=== PATIENT | female | born 1965 | race Caucasian/White ===

== ENCOUNTER 2020-05-21 23:46 | Emergency (ER) | payer BC, SELFPAY ==
--- NOTE | ~2020-05-21 | CT_ITS ---
EXAMINATION: CT abdomen pelvis w con EXAM DATE: 05/22/2020 01:46 INDICATION: Abdominal pain. TECHNIQUE: Spiral CT of the abdomen and pelvis was performed following intravenous injection of 100 m L Omnipaque 350. Axial, coronal and sagittal images were reviewed. The dose-length product (DLP) fo r this examination was 322.00 mGy-cm. The exposure was tailored according to patient size (auto mA e xposure control), and iterative reconstruction (ASIR) was used as additional dose reduction technique . There is no prior study for comparison. FINDINGS: The liver, spleen, adrenal glands and pancreas are unremarkable. There are cholecystectomy clips. There is a 1 cm stone in the left renal pelvis which is nonobstructing. Other similar sized left calyceal stones. There is 3 mm right superior calyceal stone. No hydronephrosis. Inflammation mack rrounding the urothelium and right kidney. No ureteral stones identified. The uterus is not identifi ed and has likely been surgically resected. There is 2.5 mm stone in the bladder. There is no retro peritoneal or pelvic lymphadenopathy. Small umbilical fat-containing hernia. Probable identification of a normal appendix. No pericecal inflammation. There is small sliding gas troesophageal hiatal hernia. The gastric antrum appears to have some wall thickening which could be p hasic. Can't exclude gastritis. There is expected amount of colonic stool. No free intraperitoneal gas. The heart is normal in size. There are no pericardial or pleural effusions. The lung bases a re unremarkable. The bones are unremarkable. IMPRESSION: 1. Bilateral urothelial enhancement, inflammation and some fat stranding surrounding right kidney. Could be upper urinary tract infections but no evidence of pyelonephritis. Patient might have also re cently passed a right ureteral stone, there is 2.5 mm stone in the bladder. 2. Bilateral nephrolithiasis. 3. Gastric antral wall prominence, could be phasic but can't exclude gastritis. Reviewed, dictated and finalized at location A. IMPRESSION: 1. Bilateral urothelial enhancement, inflammation and some fat stranding surro unding right kidney. Could be upper urinary tract infections but no evidence o f pyelonephritis. Patient might have also recently passed a right ureteral ston e, there is 2.5 mm stone in the bladder. 2. Bilateral nephrolithiasis. 3. Gastric antral wall prominence, could be phasic but can't exclude gastritis .
[2020-05-22] VITALS: BP 132/80; PULSE 70; RESP 16; TEMP 36.7; O2SAT 100
[2020-05-22 00:44] LABS: Basophils Percent Auto 0.3 % (0.2-1.2); Eosinophils Percent Auto 0.4 % (0-4.4); Hematocrit 39.3 % (37.0-47.0); Hemoglobin 13.2 g/dL (12.0-15.0); Immature Granulocyte Absolute 0.03 K/mm3 (0.00-0.031); Immature Granulocyte Percent A 0.4 % (0-0.5); Lymphocytes Absolute Auto 0.93 K/mm3 (0.9-3.2); Lymphocytes Percent Auto 12.1 % (18.3-44.2); Mean Corpuscular HGB Conc 33.6 g/dl (32-36); Mean Corpuscular Hemoglobin 29.1 pg (26-34); Mean Corpuscular Volume 86.8 fl (80-100); Mean Platelet Volume 12.5 fl (7.4-10.4); Monocytes Absolute Auto 0.3 K/mm3 (0.1-0.6); Neutrophils Absolute Auto 6.3 K/mm3 (1.3-6.7); Neutrophils Percent Auto 82.8 % (45.5-73.1); Platelet Count Result 106 k/mm3 (150-375); Red Blood Count 4.53 M/mm3 (4.2-5.4); Red Cell Distribution Width 12.9 % (11.5-14.5); White Blood Count 7.7 K/mm3 (4.5-10.0)
[2020-05-22] MEDS: MORPHINE SULFATE (*CRX) 4 MG/ML INJ IV PUSH (00:57)
[2020-05-22] MEDS: SODIUM CHLORIDE 0.9% IV 1,000 ML 999 ML IV CONT (00:57)
[2020-05-22] MEDS: ONDANSETRON INJ 4 MG/2 ML VIAL IV PUSH (00:58)
[2020-05-22 01:21] LABS: Alanine Aminotransferase 37 U/L (4-35); Albumin Level 4.3 g/dL (3.5-5.1); Alkaline Phosphatase 111 U/L (38-126); Anion Gap 5 mmol/L (8-16); Aspartate Amino Transferase 48 U/L (14-36); Bilirubin,Total 0.3 mg/dL (0.2-1.3); Blood Urea Nitrogen 19 mg/dL (7-17); Carbon Dioxide 32 mmol/L (22-30); Chloride 100 mmol/L (98-107); Estimated CRCL calculation 51 ml/min; Estimated Glomerular Filt Rate 58; Glucose 130 mg/dL (65-105); Lipase 50 U/L (23-300); Potassium 4.1 mmol/L (3.4-5.0); Sodium 137 mmol/L (137-145)
--- NOTE | 2020-05-22 01:23 | ED.ABDPAIN ---
HPI - Abdominal Pain General Chief Complaint: Abdominal Pain Stated Complaint: right flank pain Time Seen by Provider: 05/21/20 23:48 Source: RN notes reviewed History of Present Illness HPI narrative: Patient presents to emergency department from home for right-sided abdominal pain. Patient states that this morning she felt like she had a UTI with some frequent urination she states that this evening she developed pain in her right flank that radiates around to the right side of her abdomen pain is described as sharp and stabbing and comes in waves associated with nausea and vomiting. Patient does states she has a previous history of a kidney stone. She denies any fevers or chills chest pain shortness of breath diarrhea or any other symptoms states she took ibuprofen at home with minimal relief Related Data Allergies Allergy/AdvReac Type Severity Reaction Status Date / Time No Known Allergies Allergy Mild Verified 07/15/19 15:22 Review of Systems Review of Systems: Narrative: Gen.: Denies fevers or chills ENT: Denies congestion Respiratory: Denies shortness of breath or cough CV: Denies chest pain or palpitations GI: See HPI reports urinary frequency Musculoskeletal: Denies back pain or muscle pain Neuro: Denies numbness, tingling, weakness or focal weakness Skin: Denies rash Except as documented, all other systems reviewed and negative [facility] Past Medical History Medical History (Updated 05/22/20 @ 03:32 by Elieser Gallego DO) Kidney stone Family History Family History Father Hypertension Grandparent Cerebrovascular accident Diabetes mellitus Social History Social History Smoking status: Never smoker Alcohol intake: never Gender identity (if verbalized by the patient): Female Exam Narrative: Exam Narrative: APPEARANCE: No acute distress, nontoxic, resting in bed HEENT: Normocephalic, atraumatic, OMM RESPIRATORY: No respiratory distress, clear to auscultation bilaterally with no rhonchi wheezing or rales CARDIOVASCULAR: RRR s murmur ABDOMINAL: Soft nondistended tender palpation right upper quadrant right lower quadrant no tenderness left upper quadrant left lower quadrant, right flank tenderness MUSCULOSKELETAl: Moves all extremities. No clubbing, cyanosis or edema. NEURO: Awake and alert. Following commands, speech normal, no focal deficits SKIN:: Warm, dry. Normal Color PSYCHIATRIC: Normal affect/mood Course Vital Signs Vital signs: Vital Signs Temperature 98.1 F 05/22/20 00:00 Pulse Rate 70 05/22/20 00:00 Respiratory Rate 16 05/22/20 00:00 Blood Pressure 132/80 05/22/20 00:00 Pulse Oximetry 100 05/22/20 00:00 Temperature 98.1 F 05/22/20 00:00 Pulse Rate 66 05/22/20 02:21 Respiratory Rate 14 05/22/20 02:21 Blood Pressure 121/64 05/22/20 02:21 Pulse Oximetry 99 05/22/20 02:21 MDM - Abdominal Pain MDM Narrative Medical decision making narrative: Patient presents for right flank pain this evening had had some pressure and frequent urination this morning. UA does show blood in the urine CT scan shows some stranding around the right ureter and some mild hydronephrosis I do suspect a recently passed kidney stone I will start the patient on a short course of antibiotics she is feeling better this time with follow-up as an outpatient Lab Data Result diagrams: 05/22/20 00:20 05/22/20 00:20 Labs: Lab Results 05/22/20 05/22/20 05/22/20 Range/Units 00:20 00:20 01:01 WBC 7.7 (4.5-10.0) K/mm3 RBC 4.53 (4.2-5.4) M/mm3 Hgb 13.2 (12.0-15.0) g/dL Hct 39.3 (37.0-47.0) % MCV 86.8 (80-100) fl MCH 29.1 (26-34) pg MCHC 33.6 (32-36) g/dl RDW 12.9 (11.5-14.5) % Plt Count 106 L (150-375) k/mm3 MPV 12.5 H (7.4-10.4) fl Immature Gran % (Auto) 0.4 (0-0.5) % Neut % (Auto) 82.8 H
[2020-05-22 01:47] LABS: Add Urine Microscopic? YES; Appearance Urine Cloudy (Clear); Bilirubin Urine Negative (Negative); Blood Urine 3+ (Negative); Color Urine Yellow (Yellow); Glucose Urine UA Negative (Negative); Ketones Urine Negative (Negative); Leukocyte Esterase Ur 1+ LEU/UL (Negative); Mucus Urine Rare /lpf; Nitrate Urine Negative (Negative); Protein Urine 2+ mg/dL (Negative); RBC Urine >75 /hpf (0-2); Specific Grav Ur 1.019 (1.001-1.035); Squamous Epithelial Cell Urine Rare /hpf (Few); Urobilinogen Urine Negative mg/dL (<2.0); WBC Urine 21-30 /hpf
[2020-05-22 02:21] VITALS: BP 121/64; PULSE 66; RESP 14; O2SAT 99
[2020-05-22 03:42] VITALS: BP 123/72; PULSE 68; RESP 16; O2SAT 100
== END 2020-05-22 03:40 | disposition home or self-care (01) ==
PROVIDERS: Emergency Provider Emergency Medicine; PCP Family Medicine
DX: N20.0 Calculus of kidney (principal); N39.0 Urinary tract infection, site not specified; Z87.442 Personal history of urinary calculi
CPT/HCPCS: 36415; 74177; 80053; 81001; 83690; 85025; 87086; 96361; 96365; 96375; 99284; J0696; J2270; J2405; J7030; Q9967

== ENCOUNTER 2021-02-21 12:54 | Outpatient (CLI) | payer BC, SELFPAY ==
--- NOTE | ~2021-02-21 | CT_ITS ---
EXAMINATION: CT abdomen pelvis wo/w con DATE: 02/21/2021 13:39 INDICATION: Personal history of urinary calculi. TECHNIQUE: Computed tomography (CT) of the abdomen and pelvis was performed without and with intraven ous contrast using a total of 130 mL Omnipaque-350 intravenous contrast with a double-bolus technique for simultaneous opacification of the renal parenchyma and renal collecting system. Automated exposu re control and iterative reconstruction technique were employed. The dose-length product was 1280.86 mGy-cm. COMPARISON: CT abdomen and pelvis 05/22/2020 FINDINGS: The visualized portions of the lung bases demonstrate mild atelectasis. No pleural effusion. The hear t size is normal. No pericardial effusion. The liver is normal. There is a 7 mm hyperenhancing mass i n the spleen, likely a benign mass such as a hemangioma. The pancreas and adrenal glands are normal. There are 3 mm 2 mm stones in right kidney. There are cysts in the kidneys measuring up to 11 mm on t he left. The right ureter is well opacified and is normal. There are 4 stones in the left kidney and left renal pelvis measuring up to 12 mm. There is urothelial thickening in left renal pelvis and some of the left infundibula, consistent with inflammation. The left ureter is well opacified. The bladde r is normal. There are no dilated loops of bowel. The appendix is not visualized. There are no pathol ogically enlarged lymph nodes. There is no free intraperitoneal fluid. There is a benign bone island in right ilium. There is mild thoracolumbar spondylosis. IMPRESSION: 1. Stones in the kidneys and left renal pelvis. 2. Urothelial thickening again seen in the left renal pelvis and some of the left infundibula, consis tent with inflammation versus infection. Reviewed, dictated and finalized at location B. RY MACHINE OPERATOR IMPRESSION: 1. Stones in the kidneys and left renal pelvis. 2. Urothelial thickening again seen in the left renal pelvis and some of the le ft infundibula, consistent with inflammation versus infection.
--- NOTE | ~2021-02-21 | US_ITS ---
EXAMINATION: US soft tissue head and neck, US soft tissue chest DATE: 02/21/2021 13:48 INDICATION: Localized swelling, mass and lump of the trunk at the right supraclavicular region and la teral right chest TECHNIQUE: Multiple grayscale and Doppler ultrasound images of the region of concern at the neck and right supraclavicular chest were obtained. COMPARISON: None FINDINGS: 5.0 x 1.7 x 1.0 cm subcutaneous mass in the right supraclavicular region which is isoechoic and with similar echotexture to the surrounding subcutaneous fat most likely to represent a lipoma. No other a bnormal masses or fluid collections identified at the right supraclavicular region. There is a simila r appearing 4.2 x 2.6 x 0.9 cm subcutaneous mass along the lateral right chest wall at the site of th e palpable abnormality also most suspicious for a lipoma. IMPRESSION: 1. 5.0 x 1.7 x 1.0 cm right supraclavicular subcutaneous mass and 4.2 x 2.6 x 0.9 cm subtle airspace opacity lateral right chest wall. Both lesions are nonspecific but have appearance most consistent wi th an statistically most likely to represent lipomas. Reviewed, dictated and finalized at location A. ERT GROWER IMPRESSION: 1. 5.0 x 1.7 x 1.0 cm right supraclavicular subcutaneous mass and 4.2 x 2.6 x 0 .9 cm subtle airspace opacity lateral right chest wall. Both lesions are nonspe cific but have appearance most consistent with an statistically most likely to represent lipomas.
[2021-02-21 13:14] LABS: Estimated Glomerular Filt Rate > 60
== END 2021-02-21 12:55 ==
PROVIDERS: PCP Family Medicine; Visit Provider Physician Assistant Medical
DX: Z87.442 Personal history of urinary calculi (principal); N20.0 Calculus of kidney; R93.49 Abnormal radiologic findings on diagnostic imaging of other urinary organs
CPT/HCPCS: 74178; 76536; 76604; Q9967

== ENCOUNTER 2021-03-22 14:14 | Outpatient (CLI) | payer BC, SELFPAY ==
--- NOTE | ~2021-03-22 | XR_ITS ---
EXAMINATION: XR abdomen/kub 1V DATE: 03/22/2021 14:32 INDICATION: Bilateral kidney stones. TECHNIQUE: A supine view of the abdomen on 2 radiographs was obtained. COMPARISON: CT abdomen and pelvis 02/21/2021 FINDINGS: There are no dilated loops of bowel. There phleboliths in the pelvis. Surgical clips in the right upper quadrant are likely from cholecystectomy. There are 3 stones or clusters of stones in le ft kidney measuring up to 18 mm. IMPRESSION: 1. Left kidney stones. Reviewed, dictated and finalized at location A. WAITER/WAITRESS IMPRESSION: 1. Left kidney stones.
== END 2021-03-22 14:15 | disposition home or self-care (01) ==
LOC: ANHIMG 14:20
PROVIDERS: PCP Family Medicine; Visit Provider Nurse Practitioner Family
DX: N20.0 Calculus of kidney (principal)
CPT/HCPCS: 74018

== ENCOUNTER 2021-03-25 03:29 | Day surgery (SDC) | payer BC, SELFPAY ==
[2021-03-23 08:18] VITALS: BMI 25.0
--- NOTE | 2021-03-23 08:31 | PC.NURSE ---
Report to the Outpatient Waiting Room, entrance under the green pavilion located off [facility], at time 0830 on date 03/25/21. OR Time: 1030. - You will be asked a series of questions to screen for COVID 19 for your protection. - A mask is required within the hospital. - No visitors are allowed at this time. Preoperative COVID Testing Requirements: No COVID Test needed if: (proof is required; if not received patient will have Rapid Test prior to entry) - Patient has received COVID Vaccine at least 14 days prior to procedure date or - Patient has positive COVID test result within last 90 days of surgery date. COVID Test needed if above criteria is not met Patients may have clear liquids (water, carbonated beverages, clear teas, apple juice) until 3 hours prior to surgery with a maximum of 20 ounces. - No food from midnight until time of surgery Take the following medications with a SIP of water the morning of surgery: PAIN PILL (IF NEEDED) Medications to discontinue per physician: N/A Date to take last dose: N/A Please no make-up, nail moroccan, hairspray, perfume, deodorant, or body powder the day of surgery. No jewelry (including any body piercings) or valuables the day of surgery, leave them at home. Please take a shower or bath the night before, or the morning of, surgery with an antibacterial soap. Wear comfortable, loose fitting clothing. - Jewelry must be removed prior to entering the operating room. Rings and piercings that are not removed may be cut off. - The hospital will not accept responsibility for valuables. - Please leave all valuables, including medications, at home the day of surgery. If you are going home after surgery, a licensed driver helper must drive you home. - NO public transportation without another adult. - We recommend that an adult stay with you for 24 hours following discharge. - We also recommend that you do not drive, make important decision, drink alcoholic beverages, or take any drugs that were not prescribed by your health care provider for at least 24 hours after your discharge time. For Pediatric surgeries, we recommend two adults accompany the child home (only one inside the building at this time). Follow any additional instructions given to you from your surgeon. Telephone instructions given to JOSE RAFAEL HARDY and asked if any additional questions and then verbalized understanding. Patient advised to call surgeon office or pre surgery nurse liaison [phone] if any additional questions.
[2021-03-25] VITALS (7 sets, daily range): BP systolic 93–127; BP diastolic 55–74; PULSE 57–72; RESP 11–20; TEMP 36.1–36.5; O2SAT 98–100
--- NOTE | ~2021-03-25 | XR_ITS ---
EXAMINATION: XR abdomen/kub 1V EXAM DATE: 03/25/2021 08:38 INDICATION: ESWL TECHNIQUE: Frontal projection(s) of the abdomen for interpretation. Comparison is made to prior exami nation from 03/22/2021. FINDINGS: Clusters of left calyceal stones reidentified, indicated. Moderate amount of colonic stool and gas. Cholecystectomy clips. No small bowel obstruction. Calcifications in the pelvis are believe d to be phleboliths. There are mild bony degenerative changes. IMPRESSION: Left nephrolithiasis. Reviewed, dictated and finalized at location B. DYEING MACHINE OPERATOR IMPRESSION: Left nephrolithiasis.
--- NOTE | 2021-03-25 06:34 | WPDHPUPDATE1 ---
History and Physical Update Update Date/Time: 03/25/21 06:34 History and Physical has been reviewed, including an updated exam of the patient. There are NO changes in the patient's condition. Risks, benefits, and alternatives have been discussed and questions answered. Patient agrees to proceed with procedure.
--- NOTE | 2021-03-25 07:42 | ECG_ITS ---
Measurements Intervals [place] Rate: 60 P: 38 MT: 130 QRS: 12 QRSD: 80 T: 40 QT: 410 QTc: 410 Interpretive Statements SINUS RHYTHM MINIMAL Q WAVES- HIGH LAT/LAT LEADS BORDERLINE ECG Electronically Signed On 03-25-2021 9:29:57 RETINA SUBSPECIALIST by Juno Hameed D.O.
--- NOTE | 2021-03-25 09:12 | WPDANESEPPF ---
Anes - Initial Pre Proc Eval Procedure: Operation Date: 03/25/21 10:30 Proposed Procedures p Left Extracorporeal Shock Wave Lithotripsy, - Tu Reese MD s Possible Cystoscopy with Possible Left Stent Placement - Tu Reese MD Date/Time: 03/25/21 09:12 Surgeon: Tu Reese MD Pre Op Diagnosis: bilateral renal stones Patient Data Age: 55 Gender: F Height: 1.65 m Weight: 68.04 kg Allergies Allergy/AdvReac Type Severity Reaction Status Date / Time No Known Allergies Allergy Mild Verified 03/23/21 08:17 Home Medications Medication Instructions Recorded Confirmed Type benazepril 10 mg tablet 10 mg PO DAILY #90 tablet 02/18/21 03/23/21 Rx tamsulosin 0.4 mg capsule 0.4 mg PO QHS #30 cap 02/28/21 03/23/21 Rx hydrocodone-acetaminophen 1 tablet PO Q6H PRN 03/23/21 03/23/21 History Patient hx anesthesia problems: none Family hx anesthesia problems: none Results Review: All pre-operative results and documents have been reviewed as part of the pre-operative evaluation. 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 Dietary counseling and surveillance (09/19/17) Encounter for screening for lipoid disorders Essential hypertension Herpes zoster without complication Kidney stone Post herpetic neuralgia Right upper quadrant pain Routine physical examination Screening for colon cancer Visit for suture removal Surgical History Surgical History (Updated 03/24/21 @ 13:43 by Casa Carrillo DO) History of hysterectomy Family History Family History Father Hypertension CHF (congestive heart failure) COPD (chronic obstructive pulmonary disease) Grandparent Cerebrovascular accident Diabetes mellitus Mother Thyroid activity decreased Sibling No problems noted. Social History Social History Years smoked: 2 Smoking status: Former smoker Tobacco type: cigarettes Second hand tobacco smoke exposure: Yes Smoking end date: 02/12/89 Alcohol intake: never Substance use: never Substance use type: does not use Living arrangements: with family Additional occupation/education comments: accounts payable Gender identity (if verbalized by the patient): Female Spiritual care concerns: No Anes - Eval Final PreProcedure Day of Procedure 03/25/21 09:12 Patient weight: normal Heart: regular rate and rhythm Lungs: clear to auscultation and normal air movement Airway: Mallampati scale class II Neurological: alert and oriented Last oral intake: >/= 8 hours ASA classification: II Emergent: no Anesthetic plan: proceed Anesthesia type and monitoring: general LMA and standard monitoring Results Review: All pre-operative results and documents have been reviewed as part of the pre-operative evaluation. Informed Consent: The patient's anesthetic plan and its attendant risks and benefits were discussed with the patient/family/POA. Questions were solicited and answers provided to the satisfaction of the patient/family/POA.
[2021-03-25] MEDS: LACTATED RINGERS 1,000 ML 30 ML IV CONT ×2 (09:19→11:05)
[2021-03-25 09:40] LABS: INR 0.9; Partial Thromboplastin Time 26.4 SECONDS (22.3-36.8); Prothrombin Time 12.2 Seconds (11.1-14.7)
--- NOTE | 2021-03-25 10:38 | P.OP_ITS ---
Procedure Note - Detailed Date of Procedure 03/25/21 Pre-op Diagnosis Bilateral renal stones Post-op Diagnosis same Procedure Performed Cystoscopy, left ureteral stent placement, left ESWL Surgeon Tu Reese MD Anesthesia general Description of Procedure The patient was brought to the operative suite where she was placed in the frog- legged position on the Dornier lithotripter table. Flexible cystoscopy was undertaken with a 16F flexible cystoscopy. Her urethra and bladder neck were endoscopically normal. The bladder mucosa was normal and there was a single, orthotopic ureteral orifice bilaterally. A 0.035 glidewire was advanced into the left renal pelvis under fluoroscopy. A 4.8F J-J ureteral stent was positioned with the proximal coil in the renal pelvis and the distal coil in the bladder. The patient was then repositioned in the supine position and the focal point of the lithotriptor was placed at a 14mm left renal pelvic calculus. A total of 2500 shocks were delivered at a power setting of 4. Due to the size of the stone limitation with shocks were not able to treat the stones in her lower pole.There appeared to be good fragmentation of the stone. The patient tolerated the procedure well and was taken to the recovery room in good condition. Drains Yes Packing No Pathology none sent Complications No immediate complications Condition stable Disposition PACU
[2021-03-25] MEDS: KETOROLAC 30 MG/ML VIAL (*BKC) IV PUSH (11:01)
[2021-03-25] MEDS: fentaNYL CITRATE INJ (*CRX) 100 MCG/2 ML VIAL 25 MCG IV PUSH (11:37)
== END 2021-03-25 13:05 | disposition home or self-care (01) ==
PROVIDERS: PCP Family Medicine; Visit Provider Urology
PROC: (CPT 50590; principal; 2021-03-25 10:30)
PROC: (CPT 52352; 2021-03-25 10:30)
DX: N20.0 Calculus of kidney (principal); R31.29 Other microscopic hematuria; Z87.891 Personal history of nicotine dependence
CPT/HCPCS: 50590; 52332; 36415; 74018; 85610; 85730; 93005; A9270; C1769; C2617; J1100; J1885; J2405; J2704; J3010; J7120

== ENCOUNTER 2021-05-27 04:19 | Day surgery (SDC) | payer BC, SELFPAY ==
[2021-05-20 09:49] VITALS: BMI 25.3
--- NOTE | 2021-05-20 10:00 | PC.NURSE ---
Report to the Outpatient Waiting Room, entrance under the green pavilion located off [facility], at time 0630 on date 05/27/21. OR Time: 0830. - You and your visitor will be asked a series of questions to screen for COVID 19 for your protection. - A mask is required within the hospital. One visitor will be allowed to accompany the patient into the hospital. Patients visitor will be instructed to remain with patient at all times or leave the building. We will allow the visitor to come back to the postoperative area when patient is ready. Preoperative COVID Testing Requirements: No COVID Test needed if: (proof is required; if not received patient will have Rapid Test prior to entry) - Patient has received COVID Vaccine at least 14 days prior to procedure date or - Patient has positive COVID test result within last 90 days of surgery date. COVID Test needed if above criteria is not met Patients may have clear liquids (water, carbonated beverages, clear teas, apple juice) until 3 hours prior to surgery with a maximum of 20 ounces. - No food from midnight until time of surgery Take the following medications with a SIP of water the morning of surgery: NONE Medications to discontinue per physician: N/A Date to take last dose: N/A Please no make-up, nail slovak, hairspray, perfume, deodorant, or body powder the day of surgery. No jewelry (including any body piercings) or valuables the day of surgery, leave them at home. Please take a shower or bath the night before, or the morning of, surgery with an antibacterial soap. Wear comfortable, loose fitting clothing. - Jewelry must be removed prior to entering the operating room. Rings and piercings that are not removed may be cut off. - The hospital will not accept responsibility for valuables. - Please leave all valuables, including medications, at home the day of surgery. If you are going home after surgery, a licensed team truck driver must drive you home. - NO public transportation without another adult. - We recommend that an adult stay with you for 24 hours following discharge. - We also recommend that you do not drive, make important decision, drink alcoholic beverages, or take any drugs that were not prescribed by your health care provider for at least 24 hours after your discharge time. Follow any additional instructions given to you from your surgeon. Telephone instructions given to JOSE RAFAEL HARDY and asked if any additional questions and then verbalized understanding. Patient advised to call surgeon office or pre surgery nurse liaison [phone] if any additional questions.
--- NOTE | 2021-05-23 09:16 | PM.HPGS ---
History of Present Illness History of Present Illness Consent: Risks, benefits, and alternatives have been discussed and questions answered. Patient agrees to proceed with procedure. Chief complaint: left renal stones Narrative: Valeria Holder is a 55 year old female who had a large left renal pelvic stone that was effectively treated with ESWL in March 2021. She has since undergone stent removal and now presents for repeat ESWL to some lower pole stone fragments in the left kidney. She is aware of the risk, as before, including injury to the kidney, persistent stone fragments. Review of Systems Cardiovascular: Cardiovascular: Denies chest pain, Denies lightheadedness, Denies palpitations and Denies dyspnea Respiratory: Respiratory: Denies dyspnea Gastrointestinal: Gastrointestinal: Denies diarrhea, Denies nausea and Denies vomiting Genitourinary: Genitourinary: Denies hematuria and Denies dysuria Endocrine: Endocrine: Denies palpitations PMFSH Past Medical History Medical History BMI 24.0-24.9, adult BMI 25.0-25.9,adult Body mass index [BMI] 26.0-26.9, adult (12/15/16) Changing skin lesion Chronic cholecystitis with calculus Chronic cholecystitis without calculus Dermatofibroma lenticulare patient unaware of this Dietary counseling and surveillance (09/19/17) Encounter for screening for lipoid disorders Essential hypertension Herpes zoster without complication Kidney stone Post herpetic neuralgia Right upper quadrant pain Routine physical examination Screening for colon cancer Visit for suture removal Surgical History Surgical History History of hysterectomy Family History Family History Father Hypertension CHF (congestive heart failure) COPD (chronic obstructive pulmonary disease) Grandparent Cerebrovascular accident Diabetes mellitus Mother Thyroid activity decreased Sibling No problems noted. Social History Social History Years smoked: 2 Smoking status: Former smoker Tobacco type: cigarettes Second hand tobacco smoke exposure: Yes Smoking end date: 02/12/89 Alcohol intake: never Substance use: never Substance use type: does not use Living arrangements: with family Additional occupation/education comments: accounts payable Gender identity (if verbalized by the patient): Male Sexual Orientation (if Verbalized by the Patient): Straight or Heterosexual Spiritual care concerns: No Meds Home Medications and Allergies Home Medications Medication Instructions Recorded Confirmed Type benazepril 10 mg tablet 10 mg PO DAILY #90 tablet 02/18/21 05/20/21 Rx Allergies Allergy/AdvReac Type Severity Reaction Status Date / Time No Known Allergies Allergy Mild Verified 05/20/21 09:48 Exam Const: General: no acute distress Resp: Effort & Inspection: normal respiratory effort GI: Inspection: non-distended GI Palp: No abdominal tenderness and No Guarding due to palpation present (GI) Auscultation: normal bowel sounds Assessment and Plan Assessment and plan (1) Kidney stone: Code(s): N20.0 - Calculus of kidney Status: Acute Assessment and Plan: Left ESWL
--- NOTE | 2021-05-26 12:41 | WPDANESEPPF ---
Anes - Initial Pre Proc Eval Procedure: Operation Date: 05/27/21 08:30 Proposed Procedures p Left Renal Extracorporeal Shock Wave Lithotripsy - Tu Reese MD Date/Time: 05/26/21 12:41 Surgeon: Tu Reese MD Pre Op Diagnosis: left renal stones Patient Data Age: 55 Gender: F Height: 1.65 m Weight: 69 kg Allergies Allergy/AdvReac Type Severity Reaction Status Date / Time No Known Allergies Allergy Mild Verified 05/20/21 09:48 Home Medications Medication Instructions Recorded Confirmed Type benazepril 10 mg tablet 10 mg PO DAILY #90 tablet 02/18/21 05/20/21 Rx Patient hx anesthesia problems: none Family hx anesthesia problems: none Results Review: All pre-operative results and documents have been reviewed as part of the pre-operative evaluation. [facility] [place] Past Medical History Medical History BMI 24.0-24.9, adult BMI 25.0-25.9,adult Body mass index [BMI] 26.0-26.9, adult (12/15/16) Changing skin lesion Chronic cholecystitis with calculus Chronic cholecystitis without calculus Dermatofibroma lenticulare patient unaware of this Dietary counseling and surveillance (09/19/17) Encounter for screening for lipoid disorders Essential hypertension Herpes zoster without complication Kidney stone Post herpetic neuralgia Right upper quadrant pain Routine physical examination Screening for colon cancer Visit for suture removal Surgical History Surgical History (Updated 05/26/21 @ 12:41 by Casa Carrillo DO) History of cholecystectomy History of hysterectomy Family History Family History Father Hypertension CHF (congestive heart failure) COPD (chronic obstructive pulmonary disease) Grandparent Cerebrovascular accident Diabetes mellitus Mother Thyroid activity decreased Sibling No problems noted. Social History Social History Years smoked: 2 Smoking status: Former smoker Tobacco type: cigarettes Second hand tobacco smoke exposure: Yes Smoking end date: 02/12/89 Alcohol intake: never Substance use: never Substance use type: does not use Living arrangements: with family Additional occupation/education comments: accounts payable Gender identity (if verbalized by the patient): Male Sexual Orientation (if Verbalized by the Patient): Straight or Heterosexual Spiritual care concerns: No Anes - Eval Final PreProcedure Day of Procedure 05/26/21 12:41 Patient weight: overweight Heart: regular rate and rhythm Lungs: clear to auscultation and normal air movement Airway: Mallampati scale class II Neurological: alert and oriented Last oral intake: >/= 8 hours ASA classification: II Emergent: no Anesthetic plan: proceed Anesthesia type and monitoring: general LMA and standard monitoring Results Review: All pre-operative results and documents have been reviewed as part of the pre-operative evaluation. Informed Consent: The patient's anesthetic plan and its attendant risks and benefits were discussed with the patient/family/POA. Questions were solicited and answers provided to the satisfaction of the patient/family/POA.
--- NOTE | ~2021-05-27 | XR_ITS ---
EXAMINATION: XR abdomen/kub 1V INDICATION: Kidney stones TECHNIQUE: Supine views of the abdomen were obtained on 2 radiographs. COMPARISON: 03/25/2021 FINDINGS: There are multiple adjacent stones projecting in the left mid kidney and left renal pelvis. One cluster of stones measures up to 1.7 cm in total dimension and a second measures up to 1.0 cm. N o stones are identified in the right kidney or the expected location of the ureters or bladder. There are multiple phleboliths of the pelvis. Cholecystectomy clips are noted. The bowel gas pattern is no rmal. IMPRESSION: 1. Left nephrolithiasis. Reviewed, dictated and finalized at location A. IMPRESSION: 1. Left nephrolithiasis.
--- NOTE | 2021-05-27 06:24 | WPDHPUPDATE1 ---
History and Physical Update Update Date/Time: 05/27/21 06:24 History and Physical has been reviewed, including an updated exam of the patient. There are NO changes in the patient's condition. Risks, benefits, and alternatives have been discussed and questions answered. Patient agrees to proceed with procedure.
[2021-05-27 07:09] VITALS: BP 132/68; PULSE 57; RESP 20; TEMP 36.2; O2SAT 100
[2021-05-27] MEDS: LACTATED RINGERS 1,000 ML 30 ML IV CONT (07:30)
[2021-05-27 07:53] LABS: Prothrombin Time 12.5 Seconds (11.1-14.7)
[2021-05-27 07:54] LABS: Partial Thromboplastin Time 26.2 SECONDS (22.3-36.8)
--- NOTE | 2021-05-27 07:55 | SUR.PREOP ---
[id number] WITH DR. MELGAR RE: ABSENCE OF URINE CULTURE RESULTS, STATES WILL F/U WITH OFFICE RECORD.
[2021-05-27] MEDS: ceFAZolin 2 GM/D5W 50 ML 2 GM/50 ML BAG IVPB (08:21)
--- NOTE | 2021-05-27 08:45 | W.PM.PROC2 ---
Procedure Note - Detailed Date of Procedure 05/27/21 Pre-op Diagnosis Left renal stones Post-op Diagnosis Same Procedure Performed Left ESWL Surgeon Tu Reese MD Anesthesia General Description of Procedure The patient was brought to the operative suite where he was placed in the supine position on the Dornier lithotripsy table. The focal point of the lithotripter was placed at a collection of 3-4 stones in her left lower pole calyx. A total of 2500 shocks were delivered at a power setting of 4. There appeared to be good fragmentation of the stone. The patient tolerated the procedure well and was taken to the recovery room in good condition. Estimated Blood Loss 0 Drains No Packing No Pathology None sent Complications No immediate complications Condition Stable Disposition PACU
[2021-05-27 09:10] VITALS: BP 100/56; PULSE 69; RESP 18; TEMP 36.4; O2SAT 98
[2021-05-27 09:25] VITALS: BP 111/74; PULSE 87; RESP 13; O2SAT 100
[2021-05-27 09:40] VITALS: BP 122/74; PULSE 72; RESP 18; O2SAT 100
[2021-05-27 09:45] VITALS: BP 107/83; PULSE 55; RESP 14
[2021-05-27 10:15] VITALS: BP 123/77; PULSE 59; RESP 14
== END 2021-05-27 10:30 | disposition home or self-care (01) ==
PROVIDERS: PCP Family Medicine; Visit Provider Urology
PROC: (CPT 50590; principal; 2021-05-27 08:30)
DX: N20.0 Calculus of kidney (principal); B02.29 Other postherpetic nervous system involvement; Z87.891 Personal history of nicotine dependence; Z79.899 Other long term (current) drug therapy; I10 Essential (primary) hypertension
CPT/HCPCS: 50590; 36415; 74018; 85610; 85730; J0690; J1100; J2250; J2405; J2704; J3010; J7120

== ENCOUNTER 2022-07-19 08:03 | Outpatient (CLI) | payer BC, SELFPAY ==
--- NOTE | ~2022-07-19 | MM_ITS ---
EXAMINATION: MM screening jennifer BI w jose antonio HISTORY: Screening TECHNIQUE: Craniocaudal and mediolateral oblique 3-D tomosynthesis images were obtained and synthetic 2-D images were generated. CAD analysis was submitted and interpreted. COMPARISON: Comparison to multiple prior studies sequentially, with oldest reviewed study dated 01/14. BREAST PARENCHYMAL COMPOSITION: The breasts are heterogeneously dense, which may obscure small masses . FINDINGS: There is no evidence of suspicious mass, calcification, or architectural distortion to sugg est malignancy in either breast. There has been no suspicious interval change. IMPRESSION: 1. No mammographic evidence of malignancy. 2. Recommend routine screening mammography in one year. BI-RADS Category 1: Negative Reviewed, dictated and finalized at location A.
== END 2022-07-19 08:04 | disposition home or self-care (01) ==
LOC: ANHIMG 08:05
PROVIDERS: PCP Family Medicine; Visit Provider Obstetrics & Gynecology
DX: Z12.31 Encounter for screening mammogram for malignant neoplasm of breast (principal)
CPT/HCPCS: 77063; 77067

== ENCOUNTER 2022-09-15 18:41 | Emergency (ER) | payer BC, SELFPAY ==
--- NOTE | 2022-09-15 18:42 | ED.URI ---
HPI - URI/Sore Throat General Chief Complaint: Upper Respiratory Infection Stated Complaint: sorethroat Time Seen by Provider: 09/15/22 18:42 Source: patient Mode of arrival: ambulatory Limitations: no limitations History of Present Illness HPI Narrative: Ms. Holder is a 57-year-old female patient presenting to the clinic today with complaints of a sore throat x5 days. She reports no known fever or chills. Does reports some nasal drip in the back of her throat. No known exposure to anyone with COVID, flu, or strep. Related Data Allergies Allergy/AdvReac Type Severity Reaction Status Date / Time No Known Allergies Allergy Mild Verified 09/15/22 18:52 Review of Systems Review of Systems: Pertinent positives per HPI. Patient denies any fever, chills, rash, headache, visual changes, dizziness, cough, runny nose, sore throat, shortness of breath, chest pain, palpitations, nausea, vomiting, diarrhea, constipation, abdominal pain, or any urinary issues. PMFSH Past Medical History Medical History BMI 24.0-24.9, adult BMI 25.0-25.9,adult Body mass index [BMI] 26.0-26.9, adult (12/15/16) Changing skin lesion Chronic cholecystitis with calculus Chronic cholecystitis without calculus Dermatofibroma lenticulare patient unaware of this Dietary counseling and surveillance (09/19/17) Encounter for screening for lipoid disorders Essential hypertension Herpes zoster without complication Kidney stone Post herpetic neuralgia Right upper quadrant pain Routine physical examination Screening for colon cancer Visit for suture removal Surgical History Surgical History History of cholecystectomy History of hysterectomy Family History Family History Father Hypertension CHF (congestive heart failure) COPD (chronic obstructive pulmonary disease) Grandparent Cerebrovascular accident Diabetes mellitus Mother Thyroid activity decreased Sibling No problems noted. Social History Social History Years smoked: 2 Smoking status: Former smoker Tobacco type: cigarettes Second hand tobacco smoke exposure: Yes Smoking end date: 02/12/89 Alcohol intake: never Substance use: never Substance use type: does not use Living arrangements: with family Occupation/Education: occupation Additional occupation/education comments: accounts payable Gender identity (if verbalized by the patient): Male Sexual Orientation (if Verbalized by the Patient): Straight or Heterosexual Spiritual care concerns: No Comments At the time of my signature, I reviewed and agree with the nursing past medical, surgical, social, and family history. There is no relevant family history pertinent to the patient complaint. Exam Narrative: General: Well-developed, well nourished, in no apparent distress Head: Normocephalic, atraumatic Eyes: Pupils equally round and reactive to light bilaterally, EOM intact, sclera and conjunctive clear, no discharge, lids normal Ears: TMs intact and clear, ear canals clear, no drainage, grossly hearing normal. Nose: Nares patent, clear nasal discharge, no inflammation, no sinus tenderness. Mouth: Oropharynx mildly red without lesions or masses, good dentition, MMM. Postnasal drip Neck: Supple, trachea midline, no enlargement of anterior or posterior cervical nodes, no thyroid masses or goiter palpable. Cardio: Regular rate and rhythm, s1 and s2 normal, no murmur appreciated. Resp: Clear to auscultation bilaterally anteriorly and posteriorly, no rhonchi, rales, wheezing or rubs Course Course Emergency Course: Portions of this record may have been created with voice recognition software. Level of Care: Express Care Visit Vital Signs Vital sig
[2022-09-15 18:49] VITALS: BP 155/73; PULSE 69; RESP 18; TEMP 36.7; O2SAT 100
== END 2022-09-15 19:11 | disposition home or self-care (01) ==
PROVIDERS: Emergency Provider Nurse Practitioner Family; PCP Family Medicine
DX: R09.82 Postnasal drip (principal); J02.9 Acute pharyngitis, unspecified; Z87.891 Personal history of nicotine dependence; I10 Essential (primary) hypertension
CPT/HCPCS: 87081; 87880; 99213; G0463

== ENCOUNTER 2023-03-04 11:47 | Emergency (ER) | payer BC, SELFPAY ==
--- NOTE | 2023-03-04 11:55 | ED.URI ---
HPI - URI/Sore Throat General Chief Complaint: Upper Respiratory Infection Stated Complaint: congestion,sorethroat,cough Time Seen by Provider: 03/04/23 11:55 Source: patient Mode of arrival: ambulatory Limitations: no limitations History of Present Illness HPI Narrative: Patient is a 57-year-old female that presents with 2 days of congestion, sore throat cough. Denies any fever, chills, nausea, vomiting, diarrhea. Has not taken anything for symptoms. Denies any sick contacts. Related Data Allergies Allergy/AdvReac Type Severity Reaction Status Date / Time No Known Allergies Allergy Mild Verified 03/04/23 12:00 Review of Systems Review of Systems: All systems reviewed & are unremarkable except as noted in HPI and below Constitutional: Constitutional: Denies body ache(s), Denies chills, Denies fatigue, Denies fever(s), Denies headache(s), Denies malaise and Denies weakness Eyes: Eyes: Denies blurry vision, Denies itchy eyes and Denies loss of vision ENT: Denies otalgia, Denies headache(s), Reports nasal congestion, Denies sinus pain and Reports sore throat Cardiovascular: Cardiovascular: Denies chest pain, Denies irregular heart rhythm and Denies dyspnea Respiratory: Respiratory: Reports cough and Denies dyspnea Gastrointestinal: Gastrointestinal: Denies abdominal pain, Denies diarrhea, Denies nausea and Denies vomiting Musculoskeletal: Musculoskeletal: Denies back pain, Denies myalgias and Denies arthralgias Integumentary/Breasts: Skin/Breast: Denies pruritus and Denies rash Neurologic: Denies headache(s), Denies loss of vision and Denies weakness Psychiatric: Psychiatric: Reports no additional psychiatric complaints Endocrine: Endocrine: Denies fatigue Allergic/Immunologic: Allergic/Immunologic: Denies itchy eyes PMFSH Past Medical History Medical History BMI 24.0-24.9, adult BMI 25.0-25.9,adult Body mass index [BMI] 26.0-26.9, adult (12/15/16) Changing skin lesion Chronic cholecystitis with calculus Chronic cholecystitis without calculus Dermatofibroma lenticulare patient unaware of this Dietary counseling and surveillance (09/19/17) Encounter for screening for lipoid disorders Essential hypertension Herpes zoster without complication Kidney stone Post herpetic neuralgia Right upper quadrant pain Routine physical examination Screening for colon cancer Visit for suture removal Surgical History Surgical History History of cholecystectomy History of hysterectomy Family History Family History Father Hypertension CHF (congestive heart failure) COPD (chronic obstructive pulmonary disease) Grandparent Cerebrovascular accident Diabetes mellitus Mother Thyroid activity decreased Sibling No problems noted. Social History Social History Years smoked: 2 Smoking status: Former smoker Tobacco type: cigarettes Second hand tobacco smoke exposure: Yes Smoking end date: 02/12/89 Alcohol intake: never Substance use: never Substance use type: does not use Living arrangements: with family Occupation/Education: occupation Additional occupation/education comments: accounts payable Gender identity (if verbalized by the patient): Male Sexual Orientation (if Verbalized by the Patient): Straight or Heterosexual Spiritual care concerns: No Comments At time of signature, agree with nursing past medical, surgical, social and family history. There is no relevant family history pertinent to the presenting complaint. Exam Const: General: cooperative, healthy appearing, comfortable, no acute distress and well nourished Nutritional Appearance: well nourished Orientation/consciousness: patient oriented x3 Limitations: no limitations HENMT: Head: normal to i
[2023-03-04 12:01] VITALS: BP 103/64; PULSE 89; RESP 18; TEMP 36.8; O2SAT 95
== END 2023-03-04 12:27 | disposition home or self-care (01) ==
PROVIDERS: Emergency Provider Nurse Practitioner Family; PCP Family Medicine
DX: J10.1 Influenza due to other identified influenza virus with other respiratory manifestations (principal); Z20.822 Contact with and (suspected) exposure to COVID-19; Z87.891 Personal history of nicotine dependence; I10 Essential (primary) hypertension
CPT/HCPCS: 87081; 87426; 87804; 87880; 99213; G0463

== ENCOUNTER 2023-09-10 09:51 | Outpatient (CLI) | payer BC, SELFPAY ==
--- NOTE | 2023-09-10 10:07 | ECHO_ITS ---
Patient Info Name: Valeria Holder Age: 58 years : 1965 Gender: Female Ht: 65 in Wt: 160 lbs BSA: 1.84 m2 HR: 59 bpm BP: 135 / 77 mmHg Technical Quality: Good Exam Date: 09/10/2023 10:14 AM Exam Location: Echo Lab Patient Status: Outpatient Admit Date: 09/10/2023 Staff Ordering Physician: Enid Hernandez PAC Architectural Project Captain: Celine Salinas RDCS Attending Provider: Enid Hernandez Referring Physician: David THOMPSON; Exam Type: CA echo doppler color flow Study Info Indications R01.1 - Cardiac murmur, unspecified Complete two-dimensional, color flow and Doppler transthoracic echocardiogram is performed. Summary 1. Complete two-dimensional, color flow and Doppler transthoracic echocardiogram is performed. 2. Left ventricular chamber dimension is normal. 3. Left ventricular systolic function is normal, estimated at 60-65%. 4. There is mild concentric increased left ventricular wall thickness. 5. The left ventricular diastolic function is grade I diastolic dysfunction. 6. E/e' 11 is mildly elevated. 7. Global longitudinal strain is normal at -19.2%. 8. Left atrial chamber dimension is mildly enlarged. 9. There is mild aortic valve sclerosis. 10. There is trace mitral valve regurgitation. 11. There is mild to moderate tricuspid valve regurgitation. 12. No pulmonary hypertension, estimated pulmonary arterial systolic pressure is 35 mmHg. Left Ventricle E/e' 11 is mildly elevated. Global longitudinal strain is normal at -19.2%. Left ventricular chamber dimension is normal. Left ventricular systolic function is normal, estimated at 60-65%. There is mild concentric increased left ventricular wall thickness. The left ventricular diastolic function is grade I diastolic dysfunction. Right Ventricle Right ventricular systolic function is normal and with normal TAPSE 2.6 cm. Right ventricular chamber dimension is normal. Left Atria Left atrial chamber dimension is mildly enlarged. Right Atria Right atrial chamber dimension is normal. Aortic Valve The aortic valve is trileaflet. There is mild aortic valve sclerosis. There is no aortic valve stenosis. There is no aortic valve regurgitation. Pulmonic Valve There is no pulmonic regurgitation. Mitral Valve There is no mitral valve stenosis. There is trace mitral valve regurgitation. Tricuspid Valve There is mild to moderate tricuspid valve regurgitation. No pulmonary hypertension, estimated pulmonary arterial systolic pressure is 35 mmHg. Pericardium/Pleural There is no pericardial effusion. Inferior Vena Cava Normal inferior vena cava with >50% collapse upon inspiration consistent with normal right atrial pressure, 5 mmHg. Aorta The aortic root size at the sinus of Valsalva is normal. Left Ventricular Outflow Tract Name Value Normal LVOT 2D LVOT Diameter 1.9 cm LVOT Doppler LVOT Peak Gradient 6 mmHg LVOT Mean Gradient 3 mmHg LVOT VTI 29 cm LVOT VTI/AV VTI Ratio 0.8 LVOT Stroke Volume 84 ml LVOT CO 4.6 l/min LVOT CI 2.5
[2023-09-10 11:09] LABS: Basophils Percent Auto 0.6 % (0.2-1.2); Eosinophils Absolute Auto 0.1 K/mm3 (0-0.3); Eosinophils Percent Auto 1.1 % (0-4.4); Hematocrit 41.2 % (37.0-47.0); Hemoglobin 13.5 g/dL (12.0-15.0); Immature Granulocyte Absolute 0.02 K/mm3 (0.00-0.031); Immature Granulocyte Percent A 0.4 % (0-0.5); Lymphocytes Absolute Auto 1.65 K/mm3 (0.9-3.2); Lymphocytes Percent Auto 31.5 % (18.3-44.2); Mean Corpuscular HGB Conc 32.8 g/dl (32-36); Mean Corpuscular Hemoglobin 29.5 pg (26-34); Mean Platelet Volume 12.5 fl (7.4-10.4); Monocytes Absolute Auto 0.4 K/mm3 (0.1-0.6); Monocytes Percent Auto 7.4 % (2.6-8.5); Neutrophils Absolute Auto 3.1 K/mm3 (1.3-6.7); Platelet Count Result 101 k/mm3 (150-375); Red Blood Count 4.58 M/mm3 (4.2-5.4); Red Cell Distribution Width 13.2 % (11.5-14.5); White Blood Count 5.2 K/mm3 (4.5-10.0)
[2023-09-10 11:19] LABS: Alanine Aminotransferase 34 U/L (6-35); Albumin Level 4.4 g/dL (3.5-5.1); Alkaline Phosphatase 114 U/L (38-126); Anion Gap 8 mmol/L (4-12); Aspartate Amino Transferase 30 U/L (14-36); Bilirubin,Total 0.4 mg/dL (0.2-1.3); Blood Urea Nitrogen 22 mg/dL (7-17); Calcium 9.7 mg/dL (8.4-10.2); Carbon Dioxide 32 mmol/L (22-30); Chloride 100 mmol/L (98-107); Cholesterol 217 mg/dL (0-200); Estimated Glomerular Filt Rate > 60; Glucose 94 mg/dL (65-110); HDL Direct 54 mg/dL; Potassium 4.5 mmol/L (3.4-5.0); Sodium 140 mmol/L (137-145); Triglycerides 74 mg/dL (<150)
[2023-09-10 11:31] LABS: LDL Cholesterol Direct 126 mg/dL
[2023-09-10 11:52] LABS: Thyroid Stimulating Hormone 0.816 uIU/mL (0.465-4.680)
[2023-09-10 11:53] LABS: Free T4 Free Thyroxine 1.08 ng/mL (0.78-2.19)
== END 2023-09-10 09:52 | disposition home or self-care (01) ==
LOC: ANHCARD 09:51
PROVIDERS: PCP Family Medicine; Visit Provider Physician Assistant Medical
DX: R01.1 Cardiac murmur, unspecified (principal); I35.8 Other nonrheumatic aortic valve disorders; I11.9 Hypertensive heart disease without heart failure; I36.1 Nonrheumatic tricuspid (valve) insufficiency; E78.5 Hyperlipidemia, unspecified; E04.9 Nontoxic goiter, unspecified; D69.6 Thrombocytopenia, unspecified; R73.01 Impaired fasting glucose; R74.01 Elevation of levels of liver transaminase levels
CPT/HCPCS: 36415; 80053; 80061; 84439; 84443; 85025; 93306

== ENCOUNTER 2023-10-30 01:07 | Day surgery (SDC) | payer BC, SELFPAY ==
[2023-10-12 09:09] VITALS: BMI 27.1
[2023-10-30 10:10] VITALS: BP 130/83; PULSE 62; RESP 16; TEMP 36.2; O2SAT 100; BMI 26.4
[2023-10-30] MEDS: LACTATED RINGERS 1,000 ML 150 ML IV CONT (10:30)
--- NOTE | 2023-10-30 10:30 | WPDANESEPPF ---
Anes - Initial Pre Proc Eval Procedure: Operation Date: 10/30/23 11:30 Proposed Procedures p Screening Colonoscopy - Dustin Hairston DO Date/Time: 10/30/23 10:30 Surgeon: Dustin Hairston DO Pre Op Diagnosis: Screening for malignant neoplasm of colon Patient Data Age: 58 Gender: F Height: 1.65 m Weight: 71.9 kg Last Vital Signs Temp 36.2 C L 10/30/23 10:10 Pulse 62 10/30/23 10:10 Resp 16 10/30/23 10:10 BP 130/83 10/30/23 10:10 Pulse Ox 100 10/30/23 10:10 O2 Del Method Room Air 10/30/23 10:10 Allergies Allergy/AdvReac Type Severity Reaction Status Date / Time No Known Allergies Allergy Mild Verified 10/30/23 10:19 Home Medications Medication Instructions Recorded Confirmed Type benazepril 10 mg tablet 10 mg PO DAILY #90 tabs 07/11/23 10/12/23 Rx Patient hx anesthesia problems: none Family hx anesthesia problems: none Results Review: All pre-operative results and documents have been reviewed as part of the pre-operative evaluation. [facility] Past Medical History Medical History BMI 25.0-25.9,adult Body mass index [BMI] 26.0-26.9, adult (12/15/16) Changing skin lesion Chronic cholecystitis with calculus Chronic cholecystitis without calculus Dermatofibroma lenticulare patient unaware of this Dietary counseling and surveillance (09/19/17) Encounter for screening for lipoid disorders Essential hypertension Herpes zoster without complication Kidney stone Post herpetic neuralgia Right upper quadrant pain Routine physical examination Screening for colon cancer Visit for suture removal Surgical History Surgical History History of cholecystectomy History of hysterectomy Family History Family History Father Hypertension CHF (congestive heart failure) COPD (chronic obstructive pulmonary disease) Grandparent Cerebrovascular accident Diabetes mellitus Mother Thyroid activity decreased Sibling No problems noted. Social History Social History Years smoked: 2 Smoking status: Never smoker Tobacco type: cigarettes Second hand tobacco smoke exposure: Yes Smoking end date: 02/12/89 Alcohol intake: current Drinks per week: 2 Substance use: never Substance use type: does not use Do You Feel Safe in your Home?: Yes Lack of Transportation: No Lack of Food: Never True Current Housing: I Have Housing Concerned About Future Housing: No Difficulty Paying Gas/Electric Bills: No Difficulty Paying for Meds: No Currently Unemployed: No Difficulty w/ Childcare or Family Care: No Living arrangements: with family Occupation/Education: occupation Additional occupation/education comments: accounts payable Gender identity (if verbalized by the patient): Female Sexual Orientation (if Verbalized by the Patient): Straight or Heterosexual Spiritual care concerns: No Anes - Eval Final PreProcedure Day of Procedure 10/30/23 10:30 Patient weight: overweight Heart: regular rate and rhythm Lungs: clear to auscultation Airway: Mallampati scale class II Neurological: alert and oriented Last oral intake: >/= 8 hours ASA classification: II Emergent: no Anesthetic plan: proceed Anesthesia type and monitoring: general GIVS and standard monitoring Results Review: All pre-operative results and documents have been reviewed as part of the pre-operative evaluation. Informed Consent: The patient's anesthetic plan and its attendant risks and benefits were discussed with the patient/family/POA. Questions were solicited and answers provided to the satisfaction of the patient/family/POA.
--- NOTE | 2023-10-30 11:35 | PM.IMHP ---
H&P: HPI History of Present Illness Date/Time: 10/30/23 11:35 Chief Complaint: screening for colorectal cancer Narrative: this is a 58-year-old woman who presents for colonoscopy. She has never had a colonoscopy before. She denies any hematochezia or melena. She denies any family history of colon cancer. Review of Systems Review of Systems: All systems reviewed & are unremarkable except as noted in HPI and below Constitutional: Constitutional: Denies chills, Denies fever(s), Denies headache(s) and Denies weight loss Eyes: Eyes: Denies change in vision ENT: Denies dizziness, Denies headache(s), Denies neck mass and Denies throat swelling Cardiovascular: Cardiovascular: Denies chest pain, Denies lightheadedness and Denies dyspnea Respiratory: Respiratory: Denies cough, Denies dyspnea and Denies wheezing Gastrointestinal: Gastrointestinal: Denies abdominal pain, Denies change in bowel habits, Denies nausea and Denies vomiting Genitourinary: Genitourinary: Denies hematuria and Denies dysuria Musculoskeletal: Musculoskeletal: Reports as per HPI Integumentary/Breasts: Skin/Breast: Reports as per HPI Neurologic: Denies dizziness and Denies headache(s) Allergic/Immunologic: Allergic/Immunologic: Denies throat swelling and Denies wheezing [facility] Past Medical History Medical History BMI 25.0-25.9,adult Body mass index [BMI] 26.0-26.9, adult (12/15/16) Changing skin lesion Chronic cholecystitis with calculus Chronic cholecystitis without calculus Dermatofibroma lenticulare patient unaware of this Dietary counseling and surveillance (09/19/17) Encounter for screening for lipoid disorders Essential hypertension Herpes zoster without complication Kidney stone Post herpetic neuralgia Right upper quadrant pain Routine physical examination Screening for colon cancer Visit for suture removal Surgical History Surgical History History of cholecystectomy History of hysterectomy Family History Family History Father Hypertension CHF (congestive heart failure) COPD (chronic obstructive pulmonary disease) Grandparent Cerebrovascular accident Diabetes mellitus Mother Thyroid activity decreased Sibling No problems noted. Social History Social History Years smoked: 2 Smoking status: Never smoker Tobacco type: cigarettes Second hand tobacco smoke exposure: Yes Smoking end date: 02/12/89 Alcohol intake: current Drinks per week: 2 Substance use: never Substance use type: does not use Do You Feel Safe in your Home?: Yes Lack of Transportation: No Lack of Food: Never True Current Housing: I Have Housing Concerned About Future Housing: No Difficulty Paying Gas/Electric Bills: No Difficulty Paying for Meds: No Currently Unemployed: No Difficulty w/ Childcare or Family Care: No Living arrangements: with family Occupation/Education: occupation Additional occupation/education comments: accounts payable Gender identity (if verbalized by the patient): Female Sexual Orientation (if Verbalized by the Patient): Straight or Heterosexual Spiritual care concerns: No Meds Home Medications and Allergies Home Medications Medication Instructions Recorded Confirmed Type benazepril 10 mg tablet 10 mg PO DAILY #90 tabs 07/11/23 10/12/23 Rx Allergies Allergy/AdvReac Type Severity Reaction Status Date / Time No Known Allergies Allergy Mild Verified 10/30/23 10:19 Vital Signs Vital Signs - 24 hr 10/30/23 10:10 Temperature 97.1 F L Pulse Rate 62 Respiratory Rate 16 Blood Pressure 130/83 Pulse Oximetry 100 Oxygen Delivery Room Air Exam Const: General: no acute distress and alert Orientation/consciousness: patient oriented
[2023-10-30 12:04] VITALS: BP 98/57; PULSE 66; RESP 18; O2SAT 100
[2023-10-30 12:14] VITALS: BP 107/63; PULSE 54; RESP 14; O2SAT 100
[2023-10-30 12:24] VITALS: BP 116/69; PULSE 63; RESP 17; O2SAT 100
== END 2023-10-30 12:30 | disposition home or self-care (01) ==
PROVIDERS: PCP Family Medicine; Visit Provider Surgery
PROC: 0DJD8ZZ Inspection of Lower Intestinal Tract, Via Natural or Artificial Opening Endoscopic (ICD-10-PCS; CPT 45378; principal; 2023-10-30 11:30)
DX: Z12.11 Encounter for screening for malignant neoplasm of colon (principal); I10 Essential (primary) hypertension; Z87.891 Personal history of nicotine dependence
CPT/HCPCS: 45378; J2001; J2704; J7120

== ENCOUNTER 2023-11-30 08:24 | Outpatient (CLI) | payer BC, SELFPAY ==
--- NOTE | ~2023-11-30 | MM_ITS ---
EXAMINATION: MM screening jennifer BI w jose antonio HISTORY: Screening TECHNIQUE: Craniocaudal and mediolateral oblique 3-D tomosynthesis images were obtained and synthetic 2-D images were generated. CAD analysis was submitted and interpreted. COMPARISON: Comparison to multiple prior studies sequentially, with oldest reviewed study dated 01/14. BREAST PARENCHYMAL COMPOSITION: Dense: The breasts are heterogeneously dense, which may obscure small masses FINDINGS: There is no evidence of suspicious mass, calcification, or architectural distortion to sugg est malignancy in either breast. There has been no suspicious interval change. IMPRESSION: 1. No mammographic evidence of malignancy. 2. Recommend routine screening mammography in one year. BI-RADS Category 1: Negative Reviewed, dictated and finalized at location B.
== END 2023-11-30 08:25 | disposition home or self-care (01) ==
PROVIDERS: PCP Family Medicine; Visit Provider Obstetrics & Gynecology
DX: Z12.31 Encounter for screening mammogram for malignant neoplasm of breast (principal)
CPT/HCPCS: 77063; 77067